=== PATIENT | female | born 1965 | race Caucasian/White ===

== ENCOUNTER → 2018-09-08 10:30 | Outpatient (CLI) | payer OTHER | END | disposition home or self-care (01) | LOC: D.RT 10:30 | PROVIDERS: ATTEND Family Medicine | DX: Z02.71 Encounter for disability determination (principal) ==

== ENCOUNTER 2020-01-19 05:00 | Day surgery (SDC) | payer MEDICAID ==
[2020-01-18 17:30] LABS: HEMATOCRIT 44.5 % (36.0-48.0); MCH 31.6 pg (26.0-34.0); MCHC 33.7 g/dL (31.0-37.0); MCV 93.9 fL (80.0-100.0); RBC 4.74 10x6/uL (4.00-5.40); RDW 13.8 % (11.5-14.5); WBC 8.9 10x3/uL (4.8-10.8)
[2020-01-18 18:36] LABS: ANION GAP 12.5 mmol/L (8-16); CALCIUM 10.4 mg/dL (8.5-10.1); CARBON DIOXIDE 31.8 mmol/L (21.0-32.0); CREATININE - SERUM 0.9 mg/dL (0.6-1.3); POTASSIUM - SERUM 4.3 mmol/L (3.5-5.1)
[~2020-01-19] VITALS: Ht 162.6 cm; Wt 87.7 kg
[2020-01-19] VITALS (17 sets, daily range): BP systolic 86–152; BP diastolic 48–86; Ht 162.6 cm; Wt 87.7 kg
--- NOTE | ~2020-01-19 | OP ---
PATIENT NAME: CHARLA HAN MEDICAL RECORD: [id number] :61 LOCATION:D.OPS ADMISSION DATE: SURGEON: CAITLIN LAZO MD DATE OF OPERATION: 01/19/2020 DATE OF SERVICE: 01/19/2020 PREOPERATIVE DIAGNOSES: Disk herniation, osteophyte formation at C5-C6 and C6-C7 with a C6 and C7 radiculopathies. POSTOPERATIVE DIAGNOSES: Disk herniation, osteophyte formation at C5-C6 and C6-C7 with a C6 and C7 radiculopathies. PROCEDURE: Anterior cervical discectomy and fusion with removal of osteophytes at C5-6 and C6-C7. PEEK interbody cages at C5-C6 and C6-C7 with Saima bone allograft. A separate anterior cervical plate and screws with Zavation hardware. SURGEON: Caitlin Lazo MD DESCRIPTION AND TECHNIQUE: After induction of general endotracheal anesthesia, the patient was positioned supine on the operating table. The neck was prepped and draped in usual sterile fashion. Fluoroscopic x-ray and freer localized the C5-C6 interspace. Level was confirmed with fluoroscopic x-ray. A 1% lidocaine and 1:100,000 epinephrine was infiltrated in the subcutaneous tissues prior to making a transverse skin incision from midline to the sternocleidomastoid muscle. The platysma was divided with a #15-blade. Using blunt and sharp dissection with Metzenbaum scissors, I proceeded in avascular plane medial to the carotid sheath. The C5-C6 interspace was identified with fluoroscopic x-ray and a spinal needle along the longus colli muscles were elevated from bodies of C5, C6 and C7. Boyce distracting pins were placed by the C5, C6, and C7. Levels were reconfirmed with fluoroscopic x-ray. The disk space at C5-C6 and C6-C7 were incised with a #11 blade. The disk space material was removed with pituitary rongeurs and curettes. Posteriorly, a microscope and Midas Juan drill were used to remove osteophytes. The posterior longitudinal ligament was removed with 2-mm Cloward rongeurs. The dura was decompressed well. A PEEK interbody cage was placed in the disk space under distraction. Prior to this, it was filled with bone stem cells. Next, attention was turned to the C6-C7 interspace. The cartilaginous endplate was removed with pituitary rongeurs and curettes. Osteophytes were drilled away posteriorly with a Midas Midas-Juan drill and microscope. The posterior longitudinal ligament was removed with Cloward rongeurs. The dura was decompressed well. A PEEK interbody cage was placed in the disk space under distraction. Prior to this, it was filled with Saima bone allograft. A separate Zavation anterior cervical plate and screws midline plate was used to span of C5-C6 and C6-C7 interspaces. Self-drilling screws with variable angle were advanced through the holes in the plate under fluoroscopic control. The locking cams were tightened down over the screw heads. Meticulous hemostasis was maintained throughout the wound. Wound was irrigated with copious amounts of Ancef irrigant solution. The retractors were removed. The platysma was closed with interrupted 4-0 Vicryl suture. The subdermal layer was closed with 4-0 Vicryl suture. The skin was reapproximated with Steri-Strips and benzoin. A sterile dressing was applied to the wound. The patient was awakened in good condition and taken to recovery. All counts were reported as correct. Estimated blood loss was minimal. OPERATIVE REPORT [id number] CHARLA HAN TRANSINT:[id number] Voice Confirmation ID: [id number] DOCUMENT ID: [id number] CAITLIN LAZO MD CC: [id number] DICTATION DATE: 01/25/20 1011 [employer]: 01/25/20 1135 [facility] 01/20/20 [place] [id number]
[~2020-01-19 05:00] MED LIST: GABAPENTIN300 MG PO; HYDROCODON-ACE1 EA10 PO; LEVOTHYROXINE50 MCG PO; PROAIR HFA8.5 G1 INH; SPIRIVA18 MCG INH
[2020-01-19] MEDS ORDERED: ZOCOR20 MG PO (05:37)
[2020-01-19] MEDS ORDERED: VESICARE10 MG PO (05:37)
[2020-01-19] MEDS ORDERED: CYMBALTA20 MG PO (05:38)
[2020-01-19] MEDS ORDERED: VITAMIN D2000 UNI1 PO (05:39)
[2020-01-19] MEDS ORDERED: FISH OIL 1,0001 CA1 PO (05:39)
[2020-01-19] MEDS ORDERED: MOBIC7.5 MG PO (05:40)
[2020-01-19] MEDS ORDERED: BACLOFEN10 MG PO (05:41)
[2020-01-20 00:01] VITALS: BP 100/58
[2020-01-20 03:01] VITALS: BP 91/47
[2020-01-20 04:01] VITALS: BP 95/47
[2020-01-20 05:01] VITALS: BP 93/50
[2020-01-20 06:02] VITALS: BP 124/79
--- NOTE | 2020-01-20 07:50 | NUR ---
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 DISCHARGE ORDERS WRITTEN.
--- NOTE | 2020-01-20 08:00 | NUR ---
UP TO BEDSIDE CHAIR WITH SOFT COLLAR. GOOD BALANCE, DENIES WEAKNESS.
[2020-01-20] MEDS ORDERED: HYDROCODON-ACE1 EA10 PO (11:48)
--- NOTE | 2020-01-20 12:45 | NUR ---
DISCHARGE INSTRUCTIONS REVIEWED AND SIGNED BY PATIENT. IV CATHETER D/C'D RIGHT HAND. TELEMETRY REMOVED. AWAITING DR. NEFF TO VISIT AND WRITE [facility]CRIPTION.
== END 2020-01-20 13:00 | disposition home or self-care (01) ==
LOC: D.OPS 05:00 → D.CVICU 10:30 → D.OPS 01-20 13:00
PROVIDERS: Anesthesiology; ATTEND Neurological Surgery
DX: M50.123 Cervical disc disorder at C6-C7 level with radiculopathy (principal); M54.12 Radiculopathy, cervical region; M54.14 Radiculopathy, thoracic region; K21.9 Gastro-esophageal reflux disease without esophagitis; E78.5 Hyperlipidemia, unspecified; Z72.0 Tobacco use; J44.9 Chronic obstructive pulmonary disease, unspecified; I10 Essential (primary) hypertension